=== PATIENT | female | born 1950 | race Caucasian/White ===

== ENCOUNTER 2017-07-26 23:51 | Emergency (ER) | payer OTHER ==
[~2017-07-26] VITALS: Ht 165.1 cm; Wt 79.9 kg
[~2017-07-26 23:51] MED LIST: ATORVASTATIN CA10 MG PO; DAILY VITE1 EAC1 PO; ECOTRIN325 MG PO; LIPITOR10 MG PO; SYNTHROID75 MCG PO; SYNTHROID88 MCG PO; VITAMIN D22000 UNIT PO; ZOLOFT100 MG PO
[2017-07-27 00:51] LABS: HEMATOCRIT 38.1 % (36.0-46.0); HEMOGLOBIN 13.3 G/DL (11.9-15.5); MCH 32.5 PG (29.0-34.0); MCHC 34.9 G/DL (30.0-36.0); MCV 93.2 FL (83-99); PLATELET COUNT 214 K/uL (156-360); RBC DIS.WIDTH-CV 12.9 % (11.8-14.6); RED BLOOD COUNT 4.09 M/uL (3.80-5.20); WHITE BLOOD COUNT 9.4 K/uL (4.1-10.2)
[2017-07-27 00:58] LABS: CHLORIDE 106 mEq/L (99-109); POTASSIUM 3.1 mEq/L (3.7-5.4); SODIUM 139 mEq/L (136-147)
[2017-07-27 01:00] LABS: GLUCOSE 124 mg/dL (70-99)
[2017-07-27 01:04] LABS: CREATININE 0.7 mg/dL (0.6-1.3); GFR ESTIMATE (CALCULATED) > 59 mL/min/
[2017-07-27 01:05] LABS: UREA NITROGEN (BUN) 9 mg/dL (9-23)
[2017-07-27 02:00] LABS: APPEARANCE CLOUDY ((CLEAR)); BILIRUBIN NEGATIVE; BLOOD SMALL; COLOR YELLOW ((YELLOW)); GLUCOSE (STRIP) NEGATIVE; KETONES 5; LEUKOCYTES TRACE; NITRITE NEGATIVE; PROTEIN (STRIP) NEGATIVE; SPECIFIC GRAVITY 1.023 (1.000-1.030)
[2017-07-27 02:04] LABS: BACTERIA RARE /HPF; CALCIUM OXALATE CRYSTALS 4+ /HPF; EPITHELIAL CELLS 2+ /HPF; HYALINE CASTS 0-5 /LPF; MUCUS 2+ /LPF; RED BLOOD CELLS 0-5 /HPF (0-5); UCUL ADDED? YES
[2017-07-27] MEDS ORDERED: ZOFRAN4 MG PO (02:54)
[2017-07-27 03:21] VITALS: BP 114/64
== END 2017-07-27 03:21 | disposition home or self-care (01) ==
LOC: EME 23:51
DX: R19.7 Diarrhea, unspecified (principal); K57.30 Diverticulosis of large intestine without perforation or abscess without bleeding; E78.5 Hyperlipidemia, unspecified; F41.9 Anxiety disorder, unspecified; F32.9 Major depressive disorder, single episode, unspecified; Z86.73 Personal history of transient ischemic attack (TIA), and cerebral infarction without residual deficits; Z87.891 Personal history of nicotine dependence
CPT/HCPCS: 74177; 80048; 81003; 85027; 87086; 87493; 99281; 99285; J2405; J7030